=== PATIENT | female | born 1975 | race Caucasian/White ===

== ENCOUNTER → 2021-07-15 | Outpatient (CLI) | payer MEDICARE, OTHER | LOC: HEART CORB 07-11 09:00 | DX: R94.31 Abnormal electrocardiogram [ECG] [EKG] (principal); I50.32 Chronic diastolic (congestive) heart failure; R07.2 Precordial pain; I51.89 Other ill-defined heart diseases | CPT/HCPCS: 78452; A9502; J2785 ==

== ENCOUNTER 2021-09-15 14:41 | Emergency (ER) | payer MEDICARE, OTHER ==
[2021-09-15 15:30] LABS: HEMOGLOBIN 12.8 gm/dl (12.3-15.3); RED BLOOD COUNT 4.06 M/UL (4.00-5.10); WHITE BLOOD COUNT 8.8 K/UL (4.5-11.0)
[2021-09-15] MEDS ORDERED: OMNICEF 300 MG300 MG PO (21:21)
== END 2021-09-15 21:23 | disposition home or self-care (01) ==
LOC: ER1 14:41
PROVIDERS: Physician Assistant Medical
DX: E11.65 Type 2 diabetes mellitus with hyperglycemia (principal); N39.0 Urinary tract infection, site not specified; J44.9 Chronic obstructive pulmonary disease, unspecified; I10 Essential (primary) hypertension; Z87.891 Personal history of nicotine dependence; Z20.822 Contact with and (suspected) exposure to COVID-19
CPT/HCPCS: 80053; 81001; 82009; 82962; 85025; 96374; 96375; 96376; 99283; J0696; U0002

== ENCOUNTER 2022-02-28 10:35 | Emergency (ER) | payer MEDICARE, OTHER ==
[~2022-02-28 10:35] MED LIST: OMNICEF 300 MG300 MG PO
[2022-02-28 11:27] LABS: HEMOGLOBIN 12.2 gm/dl (12.3-15.3); RED BLOOD COUNT 3.98 M/UL (4.00-5.10); WHITE BLOOD COUNT 13.4 K/UL (4.5-11.0)
== END 2022-02-28 13:30 | disposition home or self-care (01) ==
LOC: ER1 10:35
PROVIDERS: Physician Assistant
DX: I87.2 Venous insufficiency (chronic) (peripheral) (principal); R82.998 Other abnormal findings in urine; I12.9 Hypertensive chronic kidney disease with stage 1 through stage 4 chronic kidney disease, or unspecified chronic kidney disease; E11.22 Type 2 diabetes mellitus with diabetic chronic kidney disease; N18.9 Chronic kidney disease, unspecified; F17.200 Nicotine dependence, unspecified, uncomplicated; Z86.718 Personal history of other venous thrombosis and embolism; Z90.49 Acquired absence of other specified parts of digestive tract; Z88.8 Allergy status to other drugs, medicaments and biological substances; Z51.81 Encounter for therapeutic drug level monitoring
CPT/HCPCS: 80053; 81001; 84703; 85025; 85610; 85730; 87086; 93970; 99284

== ENCOUNTER 2022-03-06 09:47 | Emergency (ER) | payer MEDICARE, OTHER ==
[2022-03-06 11:47] LABS: HEMOGLOBIN 13.9 gm/dl (12.3-15.3); RED BLOOD COUNT 4.58 M/UL (4.00-5.10); WHITE BLOOD COUNT 11.7 K/UL (4.5-11.0)
[2022-03-06 12:43] LABS: BUN/CREATININE RATIO 12 (0-10)
== END 2022-03-06 14:02 | disposition left against medical advice (07) ==
LOC: ER1 09:47
PROVIDERS: Family Medicine
DX: R19.7 Diarrhea, unspecified (principal); E11.9 Type 2 diabetes mellitus without complications; I10 Essential (primary) hypertension; J44.9 Chronic obstructive pulmonary disease, unspecified; F17.210 Nicotine dependence, cigarettes, uncomplicated; Z90.49 Acquired absence of other specified parts of digestive tract; Z88.8 Allergy status to other drugs, medicaments and biological substances
CPT/HCPCS: 80053; 81001; 85025; 93005; 99281

== ENCOUNTER 2022-04-07 12:48 | Emergency (ER) | payer MEDICARE, OTHER ==
[2022-04-07 13:34] LABS: HEMOGLOBIN 13.5 gm/dl (12.3-15.3); RED BLOOD COUNT 4.51 M/UL (4.00-5.10); WHITE BLOOD COUNT 6.7 K/UL (4.5-11.0)
[2022-04-07 14:03] LABS: BUN/CREATININE RATIO 5 (0-10)
[2022-04-07] MEDS ORDERED: WIXELA 250-501 EACH PO (17:27)
== END 2022-04-07 18:40 | disposition home or self-care (01) ==
LOC: ER1 12:48
PROVIDERS: Physician Assistant
DX: J44.1 Chronic obstructive pulmonary disease with (acute) exacerbation (principal); E11.9 Type 2 diabetes mellitus without complications; I11.0 Hypertensive heart disease with heart failure; I50.9 Heart failure, unspecified; F17.210 Nicotine dependence, cigarettes, uncomplicated; Z79.4 Long term (current) use of insulin; Z88.8 Allergy status to other drugs, medicaments and biological substances
CPT/HCPCS: 71045; 80053; 82550; 82553; 83605; 83880; 84484; 85025; 85610; 85730; 93005; 94640; 94664; 99285; Q9967

== ENCOUNTER 2022-04-22 10:31 | Emergency (ER) | payer MEDICARE, OTHER ==
[~2022-04-22 10:31] MED LIST changes: +WIXELA 250-501 EACH PO
[2022-04-22 12:28] LABS: HEMOGLOBIN 14.3 gm/dl (12.3-15.3); RED BLOOD COUNT 4.75 M/UL (4.00-5.10); WHITE BLOOD COUNT 13.1 K/UL (4.5-11.0)
== END 2022-04-22 18:30 | disposition home or self-care (01) ==
LOC: ER1 10:31
PROVIDERS: Emergency Medicine
DX: R40.0 Somnolence (principal)
CPT/HCPCS: 36600; 70450; 71045; 80053; 81001; 82803; 83605; 83735; 83880; 84100; 85025; 87040; 87077; 87086; 87186; 93005; 96374; 99285; J2310